=== PATIENT | male | born 1975 | race Two or more races ===

== ENCOUNTER 2019-06-02 04:01 | Emergency (ER) | payer BC ==
[~2019-06-02] VITALS: Ht 177.8 cm; Wt 87.1 kg
--- NOTE | 2019-06-02 04:05 | NUR ---
PT BIBRA FROM HOME FOR N/V FOR 4 HOURS, PT IS AAOX4, NOT IN RESPIRATORY DISTRESS, V/S STABLE, KEPT RESTED AND COMFORTABLE, WILL CONTINUE TO MONITOR.
[2019-06-02] MEDS ORDERED: ONDANSETRON HCL/PF 4 MG/2 ML VIAL ONE (04:15)
--- NOTE | 2019-06-02 04:20 | NUR ---
AT BEDSIDE FOR EVAL.
--- NOTE | 2019-06-02 04:23 | NUR ---
IV LINE ESTABLISHED, BLOOD DRAWNED AND SENT TO LAB.
[2019-06-02] MEDS ORDERED: ONDANSETRON HCL/PF 4 MG/2 ML VIAL IVP ONE (04:30)
[2019-06-02] MEDS ORDERED: IV NS 0.9% 1,000 ML BAG IV ONE (04:30)
[2019-06-02] MEDS ORDERED: MECLIZINE HCL 25 MG TABLET PO ONE (04:30)
[2019-06-02] MEDS ORDERED: MECLIZINE HCL 12.5 MG TABLET ONE (04:37)
[2019-06-02 04:42] LABS: BASOPHILS # (AUTO) 0.1 /CMM (0.0-0.2); BASOPHILS % (AUTO) 0.7 % (0.0-2.0); EOSINOPHILS % (AUTO) 0.1 % (0.0-6.0); HEMATOCRIT 42 % (39-51); HEMOGLOBIN 14.5 g/dL (13.5-17.5); LYMPHOCYTES # (AUTO) 2.1 /CMM (0.8-4.8); LYMPHOCYTES % (AUTO) 20.1 % (20.0-44.0); MEAN CORPUSCULAR HGB CONC 34 g/dl (31.0-36.0); MEAN CORPUSCULAR VOLUME 90 fL (80-96); MONOCYTES # (AUTO) 0.4 /CMM (0.1-1.30); MONOCYTES % (AUTO) 3.7 % (2.0-12.0); NEUTROPHILS % (AUTO) 75.4 % (43.0-81.0); PLATELET COUNT (AUTO) 288 /CMM (150-450); RED BLOOD CELL COUNT(AUTO) 4.71 MIL/uL (4.5-6.0); WHITE BLOOD COUNT (AUTO) 10.6 K/uL (4.3-11.0)
[2019-06-02 04:48] LABS: CALCIUM, SERUM 8.6 mg/dL (8.5-10.1); POTASSIUM 3.6 mmol/L (3.5-5.1)
--- NOTE | 2019-06-02 04:53 | NUR ---
PT IS WHEELED TO CT SCAN VIA [facility].
--- NOTE | 2019-06-02 06:18 | NUR ---
IV removed. Catheter intact and site benign. Pressure and 4x4 applied to site. No bleeding noted. Patient discharged to home in stable condition. Written and verbal after care instructions given. Patient verbalizes understanding of instruction.
[2019-06-02 06:19] VITALS: BP 111/69
== END 2019-06-02 06:20 | disposition home or self-care (01) ==
LOC: ER 04:03
DX: R42 Dizziness and giddiness (principal); R11.2 Nausea with vomiting, unspecified; R51 Headache; L98.8 Other specified disorders of the skin and subcutaneous tissue
CPT/HCPCS: 36415; 70450; 80048; 85025; 96361; 96374; 99284; J2405; J7030; J8597 ×2